=== PATIENT | female | born 1970 | race Caucasian/White ===

== ENCOUNTER 2022-06-02 13:46 | Emergency (ER) | payer OTHER, SELFPAY ==
--- NOTE | ~2022-06-02 | XR_ITS ---
EXAMINATION: XR CHEST CLINICAL INFORMATION: Cough. COMPARISON: None TECHNIQUE: 2 views of the chest were obtained. FINDINGS: No significant abnormality is noted involving the heart, lungs, mediastinum, bony thorax or soft tissues. XR/XR chest 2V IMPRESSION: Unremarkable chest examination.
[2022-06-02 14:29] VITALS: BP 160/89; PULSE 110; RESP 20; TEMP 37.2; O2SAT 97; BMI 26.6
--- NOTE | 2022-06-02 14:30 | ED_ITS ---
HPI - URI/Sore Throat General Chief Complaint: Upper Respiratory Symptoms <DO Belinda Morales Last Filed: 06/02/22 14:38> Stated Complaint: flu symptons <Bentley Marrero DO - Last Filed: 06/02/22 14:38> Time Seen by Provider: 06/02/22 15:02 <Bentley Marrero DO - Last Filed: 06/02/22 14:38> Source: patient <Bentley MarreroDO Belinda maher Last Filed: 06/02/22 14:38> Mode of arrival: ambulatory <Bentley Marrero DO - Last Filed: 06/02/22 14:38> Limitations: no limitations <Bentley Marrero DO - Last Filed: 06/02/22 14:38> History of Present Illness HPI Narrative: 51-year-old female presents to the ER for evaluation of 4 days of dry cough, nasal congestion and flu-like symptoms. Her symptoms started 4 days ago after being exposed to her grandchildren who tested positive for the flu. She also states that when she developed her flu-like symptoms she also developed a red and itchy rash on her face. She has never had a rash like this before. No drainage. He patient states the cough has been keeping her up at night and she feels terrible. She denies any difficulty breathing or chest pain. No nausea, vomiting, diarrhea. She is eating and drinking normally. <ZACKERY Ruiz - Last Filed: 06/02/22 15:51> MD elicited complaint: cough and nasal congestion <ZACKERY Ruiz Last Filed: 06/02/22 15:51> Onset (ago): day(s) (4) <ZACKERY Ruiz Last Filed: 06/02/22 15:51> Consistency: constant <ZACKERY Ruiz Last Filed: 06/02/22 15:51> Severity: moderate <ZACKERY Ruiz Last Filed: 06/02/22 15:51> Description of mucous: clear <ZACKERY Ruiz Last Filed: 06/02/22 15:51> Able to tolerate fluids by mouth: Yes <ZACKERY Ruiz Last Filed: 06/02/22 15:51> Exacerbating factors: supine positioning <ZACKERY Ruiz Last Filed: 06/02/22 15:51> Relieving factors: nothing <ZACKERY Ruiz Last Filed: 06/02/22 15:51> Context: sick contacts <ZACKERY Ruiz Last Filed: 06/02/22 15:51> Associated symptoms: chills, myalgias, headache, rhinorrhea, nasal congestion and cough <ZACKERY Ruiz Last Filed: 06/02/22 15:51> Treatments prior to arrival: none <ZACKERY Ruiz Last Filed: 06/02/22 15:51> Related Data Home Medications: Previous Rx's Medication Instructions Recorded benzonatate 100 mg capsule 100 mg PO TID PRN cough #20 caps 06/02/22 hydrocodone-homatropine 5 mg-1.5 5 ml PO Q6H PRN cough #60 mL 06/02/22 mg/5 mL (5 mL) oral syrup (Hycodan) triamcinolone acetonide 0.1 % 1 appl topical BID #30 grams 06/02/22 topical ointment <Bentley Marrero DO - Last Filed: 06/02/22 14:38> Allergies/Adverse Reactions: Allergies Allergy/AdvReac Type Severity Reaction Status Date / Time No Known Allergies Allergy Verified 06/02/22 14:34 <Bentley Marrero DO - Last Filed: 06/02/22 14:38> Review of Systems Review of Systems: Constitutional: No Fever, + Chills ENT/Mouth: No sore throat, No Rhinorrhea, No Swallowing Difficulty Eyes: No Eye Pain, No Swelling, No Redness Cardiovascular: No Chest Pain, No SOB, No Orthopnea, No Edema Respiratory: +Cough, No Sputum, No Wheezing, No dyspnea Gastrointestinal: No Nausea, No Vomiting, No Diarrhea, No abdominal Pain Genitourinary: No Dysuria, No Urinary Frequency, No Hematuria Musculoskeletal: No joint pain, + Myalgias Skin: No Skin Lesions, + rash Neuro: No Weakness, No Numbness, No Dizziness, +Headache Heme/Lymph: No Bruising, No Lymphadenopathy <ZACKERY Ruiz Last Filed: 06/02/22 15:51> [facility] Social History Social History: Social History Advance Directives: No Advance Directives Information Provided: Yes <Bentley Marrero DO - Last Filed: 06/02/22 14:38> Physical Exam Vital Signs: Vital Signs: Last Vital Signs Temp 99 F 06/02/22 14:29 Pulse 110 H 06/02/22 14:29 Resp 20 06/02/22 14:29 BP 160/89 H 06/02/22 14:29 Pulse Ox 97 06/02/22 14:29 O2 Del Method 06/02/22 14:29 BMI result Body Mass Index 26.6 <Bentley Marrero DO - Last Filed: 06/02/22 14:38> Vital Signs: Last Vital Signs Temp 99 F 06/02/22 14:29 Pulse 110 H 06/02/22 14:29 Resp 20 06/02/22 14:29 BP 160/89 H 06/02/22 14:29 Pulse Ox 97 06/02/22 14:29 O2 Del Method 06/02/22 14:29 BMI result Body Mass Index 26.6 <ZACKERY Ruiz - Last Filed: 06/02/22 15:51> Appearance: Alert. Oriented X3. No acute distress. Eyes: Pupils equal, round and reactive to light. ENT: Pharynx normal. Neck: Normal inspection. Neck supple. CVS: Normal heart rate and rhythm. Pulses normal. Respiratory: No respiratory distress. Breath sounds normal. Skin: Skin warm and dry. Normal skin color. Normal skin turgor. There is an erythematous, dry, well demarcated and flaky rash on the face involving the nasal labial folds and perioral area, extending up to the cheeks. Extremities: No lower extremity edema. No calf tenderness Neuro: Oriented X 3. Grossly normal, nonfocal <ZACKERY Ruiz - Last Filed: 06/02/22 15:51> Course Course Course Narrative: 51 year old female states her grandkids have influenza she states she started with a cough 4 days ago. She states she has body aches and fever as well. She denies any lung issues no asthma and she states she has lots of pain to her abdomen when she cough. She has not been vaccinated for flu or covid. I will get XR flu and covid swabs. I will treat with tesemmanuel zavala ibuprofen and tylenol at this time. <DO Belinda Morales Last Filed: 06/02/22 14:38> Reevaluation(s) Reevaluation #1: Patient seen and examined. Her chest x-ray is clear. She was found to be positive for influenza A. She does not qualify for Tamiflu treatment given the duration of her symptoms. The rash on her face is consistent with eczema. Will prescribe topical steroid ointment. Will prescribe antitussive agents as well. She is stable for discharge home with supportive care. 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 <ZACKERY Ruiz - Last Filed: 06/02/22 15:51> Medications Administered Discontinued Medications Generic Name Dose Route Start Last Admin Trade Name Freq PRN Reason Stop Dose Admin Acetaminophen 650 mg 06/02/22 14:34 06/02/22 15:16 Acetaminophen 325 Mg Tablet PO 06/02/22 14:35 650 mg ONCE ONE Administration Benzonatate 100 mg 06/02/22 14:34 06/02/22 15:16 Benzonatate 100 Mg Capsule PO 06/02/22 14:35 100 mg ONCE ONE Administration Ibuprofen 400 mg 06/02/22 14:34 06/02/22 15:16 Ibuprofen 400 Mg Tablet PO 06/02/22 14:35 400 mg ONCE ONE Administration <Bentley Marrero DO - Last Filed: 06/02/22 14:38> Medications Administered Discontinued Medications Generic Name Dose Route Start Last Admin Trade Name Freq PRN Reason Stop Dose Admin Acetaminophen 650 mg 06/02/22 14:34 06/02/22 15:16 Acetaminophen 325 Mg Tablet PO 06/02/22 14:35 650 mg ONCE ONE Administration Benzonatate 100 mg 06/02/22 14:34 06/02/22 15:16 Benzonatate 100 Mg Capsule PO 06/02/22 14:35 100 mg ONCE ONE Administration Ibuprofen 400 mg 06/02/22 14:34 06/02/22 15:16 Ibuprofen 400 Mg Tablet PO 06/02/22 14:35 400 mg ONCE ONE Administration <ZACKERY Ruiz - Last Filed: 06/02/22 15:51> MDM - URI/Sore Throat Lab Data Labs: Lab Results 06/02/22 06/02/22 Range/Units 14:39 14:39 COVID-19 ([facility]) Negative (Negative) COVID-19 Clin Com See Note Influenza Type A (SARAH) Positive A (Negative) Influenza Type B (SARAH) Negative (Negative) Influenza A & B Note See Note <Bentley Marrero DO - Last Filed: 06/02/22 14:38> Lab Results 06/02/22 06/02/22 Range/Units 14:39 14:39 COVID-19 ([facility]) Negative (Negative) COVID-19 Clin Com See Note Influenza Type A (SARAH) Positive A (Negative) Influenza Type B (SARAH) Negative (Negative) Influenza A & B Note See Note <ZACKERY Ruiz - Last Filed: 06/02/22 15:51> Critical Care Time Critical Care Time Critical Care Time: No <ZACKERY Ruiz - Last Filed: 06/02/22 15:51> Discharge Plan Discharge Clinical Impression: Influenza A <Bentley Marrero DO - Last Filed: 06/02/22 14:38> Patient Disposition: Home, Self-Care <Bentley Marrero DO - Last Filed: 06/02/22 14:38> Additional Instructions: You tested positive for Influenza A. Treatment is supportive care - rest and plenty of hydration. You were found to be COVID-19 POSITIVE today. Your chest x-ray and oxygen levels were normal. Take over the counter cold/flu medications as needed for your symptoms. Take Tylenol and/or Motrin as needed for fevers and body aches. Follow up with your doctor this week. If you develop new or worsening symptoms call 911 or come back to the ER for further evaluation. Usted yari positivo por Influenza A. El tratamiento es de apoyo: descanso y fer hidrataci?n. Se encontr? que usted es COVID-19 POSITIVO hoy. Irby radiograf?a de t?rax y los niveles de ox?dio fueron normales. Chambers medicamentos de venta sarah beth para el resfriado o la gripe seg?n sea necesario para jannie s?ntomas. Chambers Tylenol y/o Motrin seg?n sea necesario para la fiebre y los kristen corporales. Haven un seguimiento con irby m?dico esta semana. Si desarrolla s?ntomas nuevos o que empeoran, llame al 911 o regrese a la terrence de emergencias para deon evaluaci?n adicional. <Bentley Marrero DO - Last Filed: 06/02/22 14:38> Prescriptions: New hydrocodone-homatropine [Hycodan] 5-1.5 mg/5 mL (5 mL) syrup 5 ml PO Q6H PRN (Reason: cough) Qty: 60 0RF Rx Instructions: Partial Fill upon patient request. benzonatate 100 mg capsule 100 mg PO TID PRN (Reason: cough) Qty: 20 0RF triamcinolone acetonide 0.1 % ointment 1 appl topical BID Qty: 30 0RF <Bentley Marrero DO - Last Filed: 06/02/22 14:38> Interventions: ED Discharge Assessment Last Done: 06/02/22 15:31 <Bentley Marrero DO - Last Filed: 06/02/22 14:38> Discharge Date/Time: 06/02/22 15:31 <Bentley Marrero DO - Last Filed: 06/02/22 14:38> Print Language: Georgian <Bentley Marrero DO - Last Filed: 06/02/22 14:38>
[2022-06-02 15:04] LABS: IDNOW Serial# 16C4AD1C; Influenza A Positive (Negative)
[2022-06-02 15:05] LABS: COVID-19 Test Negative (Negative); IDNOW Serial# 9DB6401D; Influenza B2 Negative (Negative)
[2022-06-02] MEDS: Benzonatate 100 MG CAPSULE PO (15:16)
[2022-06-02] MEDS: Acetaminophen 325 MG TABLET 650 MG PO (15:16)
[2022-06-02] MEDS: Ibuprofen 400 MG TABLET PO (15:16)
== END 2022-06-02 15:31 | disposition home or self-care (01) ==
PROVIDERS: Student in an Organized Health Care Education/Training Program; Emergency Provider Emergency Medicine
DX: J10.1 Influenza due to other identified influenza virus with other respiratory manifestations (principal); L25.9 Unspecified contact dermatitis, unspecified cause; Z20.822 Contact with and (suspected) exposure to COVID-19
CPT/HCPCS: 71046; 87502; 87635; 99283